=== PATIENT | male | born 1980 | race Caucasian/White ===

== ENCOUNTER 2020-07-11 21:22 | Emergency (ER) | payer MEDICAID ==
[~2020-07-11] VITALS: Ht 190.5 cm; Wt 101.6 kg
[2020-07-11] MEDS ORDERED: DIPH,PERTUSS(ACELL),TET VAC/PF 0.5 ML IM-VACC ONE ×2 (22:00→22:19)
[2020-07-11] MEDS ORDERED: LIDOCAINE 1%-EPI 1:100K, 20ML SQ ONE (22:00)
--- NOTE | 2020-07-11 22:08 | NUR ---
CC OF 'CYST' GROWING ON GROIN OVER LAST 5 DAYS, DENIES ANY DRAINAGE. RATES PAIN 07/29. + FOR BODY ACHES AND CHILLS, AFEBRILE. SHAVED AREA APPROX 1 WEEK AGO.
--- NOTE | 2020-07-11 22:09 | NUR ---
CONTENT CREATION MANAGER: PT WALKED BACK FROM LOBBY TO ROOM AT THIS TIME.
[2020-07-11] MEDS ORDERED: LIDOCAINE-MPF 2% ,5ML ONE ×3 (22:18→22:39)
[2020-07-11] MEDS ORDERED: IBUPROFEN 600 MG TABLET ONE (22:18)
[2020-07-11] MEDS ORDERED: CEPHALEXIN 500 MG CAPSULE ONE (22:18)
[2020-07-11] MEDS ORDERED: SULFAMETH./TRIMETHOPRIM DS 800MG/160MG TABLET ONE (22:18)
[2020-07-11] MEDS ORDERED: OXYcodone/APAP 5/325MG TABLET ONE (22:19)
[2020-07-11] MEDS ORDERED: LIDOCAINE 2%, 20ML SQ ONE (22:30)
[2020-07-11] MEDS ORDERED: CEPHALEXIN 500 MG CAPSULE PO ONE (22:30)
[2020-07-11] MEDS ORDERED: OXYcodone/APAP 5/325MG TABLET PO ONE (22:30)
[2020-07-11] MEDS ORDERED: IBUPROFEN 600 MG TABLET PO ONE (22:30)
[2020-07-11] MEDS ORDERED: SULFAMETH./TRIMETHOPRIM DS 800MG/160MG TABLET PO ONE (22:30)
[2020-07-11] MEDS ORDERED: PROPOFOL 10 MG/ML, 20ML IVPush ONE (23:00)
[2020-07-11] MEDS ORDERED: SODIUM CHLORIDE FLUSH 10ML SYR IVF ONE (23:00)
[2020-07-11] MEDS ORDERED: SODIUM CHLORIDE 0.9% 1,000ML IVBOLUS ONE (23:00)
--- NOTE | 2020-07-11 23:05 | NUR ---
PT IN 06/28 PT. PREPARING FOR PROCEDURAL SEDATION.
[2020-07-11 23:15] VITALS: BP 128/79
--- NOTE | 2020-07-11 23:15 | NUR ---
PT CONTINUOSLY POKING AND TOUCHING SITE AFDTER I&D. EDUCATED ON NOT DOING SO AND RISKS OF INFECTIONS. PT STATES "IM NOT TOUCHING IT" AND CONTINUES TO PLACE ON SITE. MULTIPLE ATTEMPTS AT EDUCATION GIVEN
--- NOTE | 2020-07-11 23:30 | NUR ---
assisted primary RN with care. IV placed. pt agitated and restless. pt has muliptle abscesses to both arms. pt reports that they are normal for him. pt education regarding pending pocedure. pt repeatedly touchng I&D site. pt education to avoid touching procedure site, pt reports "I'm not!" pt advised against touching site or pushing on swelling area.
[2020-07-11] MEDS ORDERED: PROPOFOL 10 MG/ML, 20ML ONE ×2 (23:59)
--- NOTE | 2020-07-12 00:07 | NUR ---
PT PREPARED FOR PROCEDURAL SEDATION, WAITER/WAITRESS COUNTER IN ROOM TO BEGIN, PT BECAME UNCOOPERATIVE WITH CARE AND AGGITATED AND EXPRESSED "I CHANGED MY MIND, I DONT WANT TO DO THIS, ILL COME BACK TOMORROW". RISKS EXPLAINED ABOUT INFECTION SPREADING AND STARTING PROCESS OVER AGAIN IF HE RETURNS TO ER. PT VERBALIZES UNDERSTANDING AND CONTINUES TO EXPRESS "IM TIRED OF WAITING AROUND, I NEED TO GO HOME AND SLEEP AND GO BACK TO WORK".
--- NOTE | 2020-07-12 00:18 | NUR ---
WHEN THIS RN WENT TO DC IV PT AGGRESSIVELY TOLD RN HE NEEDED HIS WOUND BANDAGED, RN OFFERED BANDAID AND WOUND CARE, PT INTERUPTED RN TO SAY " THIS IS THE MOST UNPROFESSIONAL SHIT GALA EVER SEEN" AND REFUSED BANDAGE AND OTHER WOUND CARE OPTIONS. PT DEMANDED RN LEAVE PAPERWORK BEHIND AND NOT WALK PT OUT. RN CALLED . PT GIVEN DC PAPERWORK WITH PRESCRIPTIONS FOR ANTIBIOTICS AND EDUCATED ABOUT FILLING AT ANY PHARMACY. PT DID NOT RESPOND. SECURITY ESCORTED PT OUT. Addendum: 07/12/20 at 0025 by KAMLESH WHEN THIS RN WENT TO DC IV PT AGGRESSIVELY TOLD RN HE NEEDED HIS WOUND BANDAGED, RN OFFERED BANDAID AND WOUND CARE, PT INTERUPTED RN TO SAY " THIS IS THE MOST UNPROFESSIONAL SHIT GALA EVER SEEN" AND REFUSED BANDAGE AND OTHER WOUND CARE OPTIONS. PT THEN TOOK BLOODY CHUCKS AND GAUZE ON HIS LAP FROM I&D AND THREW AT RNS FEET. PT DEMANDED RN LEAVE PAPERWORK BEHIND AND NOT WALK PT OUT. RN CALLED . PT GIVEN DC PAPERWORK WITH PRESCRIPTIONS FOR ANTIBIOTICS AND EDUCATED ABOUT FILLING AT ANY PHARMACY. PT DID NOT RESPOND. SECURITY ESCORTED PT OUT.
== END 2020-07-12 00:31 | disposition home or self-care (01) ==
LOC: ED 23:59
DX: L03.115 Cellulitis of right lower limb (principal); L02.415 Cutaneous abscess of right lower limb; F17.210 Nicotine dependence, cigarettes, uncomplicated
CPT/HCPCS: 10060; 99406